=== PATIENT | female | born 1985 | race Caucasian/White ===

== ENCOUNTER 2017-08-04 18:01 | Emergency (ER) | payer OTHER ==
[~2017-08-04] VITALS: Ht 165.1 cm; Wt 69.4 kg
[~2017-08-04 18:01] MED LIST: AZITHROMYCIN250 MG PO; CLEOCIN HCL300 MG PO; IBUPROFEN 600600 M1 PO; PREDNISONE50 MG PO
[2017-08-04 18:24] LABS: ABSOLUTE NEUTROPHILS 4.7 thou/uL (1.4-8.2); BASOPHILS 0.4 % (0.0-2.0); EOSINOPHILS 0.7 % (0.0-3.0); HEMATOCRIT 39.3 % (37.0-47.0); HEMOGLOBIN 13.9 gm/dL (12.0-15.0); LYMPHOCYTES 27.1 % (24.0-44.0); MCH 33.1 pg (26.0-34.0); MCHC 35.3 g/dL (28.0-37.0); MCV 93.7 fL (80.0-100.0); MONOCYTES 5.8 % (1.0-8.0); PLATELET COUNT 162 thou/uL (150-400); RBC 4.19 mil/uL (4.20-5.00); RDW 12.2 % (10.5-14.5); WBC 7.2 thou/uL (4.0-11.0)
[2017-08-04 18:32] LABS: CALCIUM 9.1 mg/dL (8.5-10.1); CREATININE 0.6 mg/dL (0.6-1.0); POTASSIUM 3.2 mmol/L (3.5-5.1)
[2017-08-04] MEDS ORDERED: XANAX 0.25 MG0.25 MG PO (18:34)
[2017-08-04 19:13] LABS: URINE BILIRUBIN NEGATIVE (Negative); URINE BLOOD 1+ (Negative); URINE CLARITY CLEAR; URINE COLOR YELLOW; URINE GLUCOSE-RANDOM* NEGATIVE (Negative); URINE KETONES NEGATIVE (Negative); URINE LEUKOCYTES NEGATIVE (Negative); URINE NITRITE NEGATIVE (Negative); URINE PROTEIN (DIPSTICK) NEGATIVE (Negative); URINE UROBILINOGEN 0.2 E.U./dl (0.2-1.0)
[2017-08-04 19:25] LABS: BACTERIA 1-9 Few /HPF (None Seen); CASTS None Seen /LPF (None Seen); CRYSTALS None Seen /LPF (None Seen); SQUAMOUS 4-10 Moderate /LPF (0-3); URINE RBC 0-2 Rare /HPF (0-2); URINE WBC 0-5 Rare /HPF (0-5)
== END 2017-08-04 20:31 | disposition home or self-care (01) ==
LOC: ER 18:01
PROVIDERS: Nurse Practitioner Family
DX: O20.0 Threatened abortion (principal); F17.210 Nicotine dependence, cigarettes, uncomplicated; Z88.0 Allergy status to penicillin; Z3A.08 8 weeks gestation of pregnancy

== ENCOUNTER 2018-08-15 10:24 | Emergency (ER) | payer OTHER ==
[~2018-08-15] VITALS: Ht 165.1 cm; Wt 72.6 kg
[~2018-08-15 10:24] MED LIST changes: +XANAX 0.25 MG0.25 MG PO
[2018-08-15 12:55] VITALS: BP 117/67
[2018-08-15] MEDS ORDERED: NORCO 5-325 TA1 EACH PO (12:58)
== END 2018-08-15 13:00 | disposition home or self-care (01) ==
LOC: ER 10:24
DX: M25.511 Pain in right shoulder (principal); F17.210 Nicotine dependence, cigarettes, uncomplicated; Z88.0 Allergy status to penicillin

== ENCOUNTER 2020-11-03 12:23 | Emergency (ER) | payer OTHER ==
[~2020-11-03] VITALS: Ht 165.1 cm; Wt 79.4 kg
[~2020-11-03 12:23] MED LIST changes: +NORCO 5-325 TA1 EACH PO
[2020-11-03] MEDS ORDERED: DOXYCYCLINE 10100 MG PO ×2 (13:00→13:01)
[2020-11-03] MEDS ORDERED: PROZAC20 M1 PO (13:04)
[2020-11-03 13:17] VITALS: BP 113/76
== END 2020-11-03 13:18 | disposition home or self-care (01) ==
LOC: ER 12:23
DX: S00.461A Insect bite (nonvenomous) of right ear, initial encounter (principal); H60.11 Cellulitis of right external ear; F17.210 Nicotine dependence, cigarettes, uncomplicated; Z79.899 Other long term (current) drug therapy; Z88.0 Allergy status to penicillin; W57.XXXA Bitten or stung by nonvenomous insect and other nonvenomous arthropods, initial encounter; Y93.89 Activity, other specified; Y92.89 Other specified places as the place of occurrence of the external cause; Y99.8 Other external cause status

== ENCOUNTER 2020-12-15 20:11 | Emergency (ER) | payer OTHER ==
[~2020-12-15] VITALS: Ht 165.1 cm; Wt 79.4 kg
[~2020-12-15 20:11] MED LIST changes: +DOXYCYCLINE 10100 MG PO; +PROZAC20 M1 PO
[2020-12-15] MEDS ORDERED: IBUPROFEN 800800 M1 PO (20:21)
[2020-12-15] MEDS ORDERED: ACETAMINOPHEN PO (20:22)
[2020-12-15] MEDS ORDERED: PREDNISONE50 MG PO (20:50)
[2020-12-15] MEDS ORDERED: FLEXERIL PO (20:50)
[2020-12-15] MEDS ORDERED: HYDROCODON-ACE1 EAC7 PO (20:50)
[2020-12-15 21:19] VITALS: BP 110/48
== END 2020-12-15 21:19 | disposition home or self-care (01) ==
LOC: ER 20:11
DX: S46.911A Strain of unspecified muscle, fascia and tendon at shoulder and upper arm level, right arm, initial encounter (principal); F17.210 Nicotine dependence, cigarettes, uncomplicated; Z88.0 Allergy status to penicillin; Z79.899 Other long term (current) drug therapy; X58.XXXA Exposure to other specified factors, initial encounter; Y93.89 Activity, other specified; Y92.89 Other specified places as the place of occurrence of the external cause; Y99.8 Other external cause status